=== PATIENT | male | born 1995 | race Caucasian/White ===

== ENCOUNTER 2019-12-06 20:43 | Emergency (ER) | payer BC ==
[2019-12-06] MEDS ORDERED: Cephalexin 500 MG Cap PO ONE (21:07)
--- NOTE | 2019-12-06 21:12 | EDM.PDOC ---
ED HPI GENERAL MEDICAL PROBLEM - General Chief Complaint: Lower Extremity Injury/Pain Stated Complaint: INGROWN TOENAILS Time Seen by Provider: 12/06/19 21:00 Source of Information: Reports: Patient History Limitations: Reports: No Limitations - History of Present Illness INITIAL COMMENTS - FREE TEXT/NARRATIVE: Patient is a 24-year-old male presenting to the emergency department with complaints of ingrown toenails to his bilateral great toes, with the left being worse than the right. Symptoms have been occurring for a number of days. He has been using peroxide to clean them with little improvement. He has had problems similar to this in the past and which has required at the ingrown toenails to be cut back. Patient is currently here from [place] and does not have a primary care provider in the area. Denies any fever, chills, nausea, or vomiting. Left Toe-Hailux Pain Score (Numeric/FACES): 6 - Related Data Allergies Allergy/AdvReac Type Severity Reaction Status Date / Time No Known Allergies Allergy Verified 12/06/19 21:02 Home Meds: Home Meds cephALEXin [Keflex] 500 mg PO Q6H 10 Days #40 cap 12/06/19 [Rx] Review of Systems - Review of Systems Review Of Systems: Comprehensive ROS is negative, except as noted in HPI. ED EXAM, GENERAL - Physical Exam Exam: See Below Exam Limited By: No Limitations General Appearance: Alert, WD/WN, No Apparent Distress Respiratory/Chest: No Respiratory Distress, Lungs Clear, Normal Breath Sounds, No Accessory Muscle Use, Chest Non-Tender Cardiovascular: Normal Peripheral Pulses, Regular Rate, Rhythm, No Edema, No Gallop, No JVD, No Murmur, No Rub Extremities: Other (Erythema, purulence, and tenderness to palpation to the medial aspect of the left great toenail. Slight redness with no swelling or purulence to the medial aspect of the right great toe.) Neurological: Alert, Oriented, CN II-XII Intact, Normal Cognition, Normal Gait, Normal Reflexes, No Motor/Sensory Deficits Psychiatric: Normal Affect, Normal Mood Skin Exam: Warm, Dry, Intact, Normal Color, No Rash Course - Orders/Labs/Meds Orders: Active Orders 24 hr Category Date Time Status cephALEXin [Keflex] Med 12/06/19 21:07 Once 500 mg PO ONETIME ONE - Re-Assessments/Exams Free Text/Narrative Re-Assessment/Exam: Patient is a 24-year-old male presenting to the emergency department with complaints of bilateral ingrown toenails. On exam, he does have a paronychia of the left great toe. There is some slight redness to the medial aspect of the right great toe, however no signs of infection. Discussed with patient that unfortunately we do not remove ingrown toenails in the emergency department, however we will start him on an antibiotic this evening and have him follow-up with podiatry at the next available visit. We will refer him to Dr. Louise. Advised him that if there is a long wait to get into Dr. Louise, he can also try to get in with Jo Bravo NP in our clinic here, however there is likely going to be a wait in order to get in with her. He verbalized understanding of this. Discharge instructions as documented. Departure - Departure Time of Disposition: 21:11 Disposition: Home, Self-Care 01 Condition: Good Clinical Impression: Paronychia due to ingrown nail - Discharge Information *PRESCRIPTION DRUG MONITORING PROGRAM REVIEWED*: No *COPY OF PRESCRIPTION DRUG MONITORING REPORT IN PATIENT JAMARCUS: No Prescriptions: cephALEXin [Keflex] 500 mg PO Q6H 10 Days #40 cap Referrals: Celestine Louise II, DPM [Physician] - Additional Instructions: You were seen in the emergency department today for ingrown toenails to both big toes. On exam, the left ingrown toenail does appear to have infection, known as a paronychia. As we discussed, unfortunately surgical removal of toenails are not a service offered in the emergency department, however you have been started on antibiotic to treat the infection. Prescription for this has been sent to [facility]. Take the medication as prescribed. Recommend that you contact Dr. Louise, entry operator at the number listed below to set up an appointment with him at his next available visit. If he is unable to get you in soon, you may also try getting an appointment with Jo Mena NP at [phone]. Return to the ER for any new or worsening symptoms of concern. - My Orders Last 24 Hours: My Active Orders 12/06/19 21:07 cephALEXin [Keflex] 500 mg PO ONETIME ONE - Assessment/Plan Last 24 Hours: My Active Orders 12/06/19 21:07 cephALEXin [Keflex] 500 mg PO ONETIME ONE
== END 2019-12-06 21:21 | disposition home or self-care (01) ==
LOC: JD.ED 20:43
DX: L60.0 Ingrowing nail (principal); L03.032 Cellulitis of left toe
CPT/HCPCS: 99283; A9270